=== PATIENT | male | born 1940 | race Caucasian/White ===

== ENCOUNTER 2024-12-24 15:35 | Emergency (ER) | payer MEDICARE, OTHER, SELFPAY ==
[2024-12-24 15:44] VITALS: BP 143/83
[2024-12-24 16:21] LABS: % Basophils 0.7 % (0-2); % Eosinophils 1.2 % (0-6); % Immature Granulocytes 0.3 % (0-0.5); % Lymphocytes 21.1 % (20.5-51.1); % Monocytes 8.2 % (1.7-9.3); % Neutrophils 68.5 % (42.2-75.2); Absolute Basophils 0.1 10^3/uL (0-0.2); Absolute Eosinophils 0.1 10^3/uL (0-0.7); Absolute Lymphocytes 1.6 10^3/uL (1.2-3.4); Absolute Monocytes 0.6 10^3/uL (0.1-0.6); Absolute Neutrophils 5.3 10^3/uL (1.4-6.5); Hematocrit 44.5 % (39.0-52.0); Hemoglobin 16.1 g/dL (13.0-18.0); Mean Corp Hgb Conc. 36.2 g/dL (33.0-37.0); Mean Corpuscular Hgb 32.4 pg (27.0-31.0); Mean Corpuscular Volume 89.5 fL (80.0-94.0); Nucleated Red Blood Cells % 0 % (-); Red Blood Cell Count 4.97 10^6/uL (4.70-6.10); Red Cell Dist. Width 12.7 % (11.5-14.5); White Blood Cell Count 7.7 10^3/uL (4.8-10.8)
[2024-12-24 16:25] LABS: ALT (SGPT) 32 U/L (0-50); AST (SGOT) 26 U/L (17-59); Albumin 4.4 g/dl (3.5-5.0); Alkaline Phosphatase 67 U/L (38-126); Blood Urea Nitrogen 14 mg/dl (9-20); Calcium 9.8 mg/dl (8.4-10.2); Carbon Dioxide 19 mmol/L (22-30); Chloride 109 mmol/L (98-107); Glucose 107 mg/dl (70-99); Sodium 136 mmol/L (135-145); Total Bilirubin 1.1 mg/dl (0.2-1.3); eGFR > 60.00
--- NOTE | 2024-12-24 18:40 | ED.GENMED ---
History of Present Illness
General
Chief Complaint: DVT/Possible Blood Clot
Source: patient and spouse
Exam Limitations: none
Time Seen by Provider: 12/24/24 18:33
Nursing documentation reviewed up to this point in time: agreed with
History of Present Illness
History of Present Illness:
84-year-old male with history of chronic inflammatory demyelinating polyneuropathy, HTN, under treatment for prostate CA with mets, presents from outpatient ultrasound for positive DVT in left leg.
Denies chest pain or shortness of breath. States discomfort in his leg is minimal.
Was at a routine PCP visit today, mentioned discomfort in left upper anterior thigh, mild swelling of the leg noted so sent here for US.
Past History
Past History
ED Past Medical History: Cancer (Prostate CA with mets), HTN and Other (Polyneuropathy)
Social History
Tobacco: Non-smoker
Personal:
Living: with family
Review of Systems
Review of Systems
Allergies reviewed?: Yes
All Other Systems: ROS reviewed and negative except as documented in HPI and ROS
Constitutional: Denies fever
Respiratory: Denies trouble breathing
Cardiac: Denies chest pain
ABD/GI: Denies abdominal pain or nausea
: Denies dysuria or difficulty voiding
Musculoskeletal: Reports other (discomfort left upper thigh, mild swelling)
Skin: Reports no symptoms
Phy Exam
Physical Exam
Physical Exam:
GENERAL: No acute distress. A&Ox3.
CONSTITUTIONAL: Afebrile.
RESPIRATORY: Regular respirations, nonlabored, lungs clear.
CARDIOVASCULAR: Regular rate and rhythm, no murmurs, no rubs.
GI: Soft, nontender, normal BS
MUSCULOSKELETAL: Moves with ease. Well perfused. No significant swelling of LE's distal n/v intact.
SKIN: Warm, dry, pink
PSYCH: Normal mood and affect. Well kept, interactive and appropriate
NEUROLOGIC: Awake, alert and oriented. No focal neurological deficits
Course
Orders/Labs/Results
Orders:
Orders
12/24/24 15:58
CMP [Comprehensive Metabolic Panel] Urgent
Complete Blood Count/With Diff Urgent
12/24/24 18:59
Apixaban [Eliquis] 10 mg PO NOW STA
Abnormal Lab Results
12/24/24
15:58
MCH 32.4 H pg
(27.0-31.0)
Chloride 109 H mmol/L
(98-107)
Carbon Dioxide 19 L mmol/L
(22-30)
Glucose 107 H mg/dl
(70-99)
12/24/24 15:58
12/24/24 15:58
Vital Signs
Initial and Last Documented VS:
Initial Vital Signs
Temp Pulse Resp BP Pulse Ox
98.1 F 64 18 143/83 99
12/24/24 15:44 12/24/24 15:44 12/24/24 15:44 12/24/24 15:44 12/24/24 15:44
Last Documented Vital Signs
Temp Pulse Resp BP Pulse Ox
98.1 F 64 18 143/83 99
12/24/24 15:44 12/24/24 15:44 12/24/24 15:44 12/24/24 15:44 12/24/24 15:44
MDM/Problems Addressed
MDM/Problems Addressed:
84-year-old male with history of chronic inflammatory demyelinating polyneuropathy, HTN, under treatment for prostate CA with mets, presents from outpatient ultrasound for positive DVT in left leg.
Denies chest pain or shortness of breath. States discomfort in his leg is minimal.
Was at a routine PCP visit today, mentioned discomfort in left upper anterior thigh, mild swelling of the leg noted so sent here for US.
Ultrasound report reviewed: Acute occlusive deep venous thrombosis within the left femoral vein.
Started on Eliquis
Labs unremarkable.
*Critical Care Note
Total Time (30-74mins, 75-104mins- exclusive of procedures): Not Applicable
ED Attending Note
-
Portions of this chart may have been created with voice recognition software.� Occasional wrong word or��sound alike� substitutions may have occurred due to the inherent limitations of voice recognition software.
Discharge Plan
Departure
Patient Disposition: Home (Routine Discharge)
Date of Disposition: 12/24/24
Time of Disposition: 19:05
Patient with high blood pressure during this ER visit?: No
Condition: Good
Discharge Problem:
Acute deep vein thrombosis (DVT) of left lower extremity
Instructions: Deep Vein Thrombosis (Blood Clots in the Legs) (DC), Apixaban
Prescriptions:
New
Eliquis 5 mg tablet
5 mg PO BID Qty: 70 0RF
Rx Instructions:
Take 10 mg BID x 7 days then 5 mg BID until further instructed
No Action
amlodipine 10 MG tablet
10 mg PO DAILY
gabapentin 300 MG capsule
300 mg PO BID@0800,1200
losartan-hydrochlorothiazide [Hyzaar] 1 EACH tablet
1 ea PO DAILY
tamsulosin 0.4 MG capsule
0.4 mg PO HS
gabapentin 300 MG capsule
600 mg PO HS
hydrocodone-acetaminophen 5 MG-30 tablet
1 tab PO HSPRN PRN (Reason: pain)
Immune Globulin
75 grams IV .[id number]
Referrals:
[facility] [Other]
NONE,* [Family Provider, Internal Medicine]
Activity Restrictions/Additional Instructions:
As we discussed, keep your appoint with Dr. Yang in 5 days.
Take Eliquis 10 mg twice a day for 7 days, the Eliquis 5 mg twice a day until further instructed by your doctor.
Interventions
Interventions:
*Risk Screen - Suicide Last Done: 12/24/24 15:44
*Neglect/Abuse Screening Last Done: 12/24/24 15:44
*Nursing Disposition Last Done: 12/24/24 19:28
ED- Cardiac Assessment Last Done: 12/24/24 19:08
Discharge Date and Time
Discharge Date/Time: 12/24/24 19:28
Print Language: IVORIAN
[2024-12-24] MEDS: ELIQUIS 10 MG PO (19:05)
== END 2024-12-24 19:28 | disposition home or self-care (01) ==
LOC: EMR 15:35
PROVIDERS: EMERGENCY PHYSICIAN Emergency Medicine
DX: I82.412 Acute embolism and thrombosis of left femoral vein (principal); G61.81 Chronic inflammatory demyelinating polyneuritis; I10 Essential (primary) hypertension; Z79.01 Long term (current) use of anticoagulants
CPT/HCPCS: 99283; 80053; 85025; 93970

== ENCOUNTER → 2024-12-28 14:37 | Outpatient (REF) | payer MEDICARE, OTHER, SELFPAY | LOC: RCS 14:37 | PROVIDERS: ATTENDING PHYSICIAN Internal Medicine | DX: I10 Essential (primary) hypertension (principal); I25.10 Atherosclerotic heart disease of native coronary artery without angina pectoris | CPT/HCPCS: 93306 ==